=== PATIENT | female | born 1960 | race Caucasian/White ===

== ENCOUNTER 2019-04-09 21:21 | Emergency (ER) | payer SELFPAY ==
[~2019-04-09] VITALS: Ht 167.6 cm; Wt 76.2 kg
[2019-04-09] MEDS ORDERED: NALOXONE HCL 1 MG/ML 2 ML SYG IVP ONE ×2 (21:30)
[2019-04-09] MEDS ORDERED: SODIUM CHLORIDE 0.9% 1,000 ML IV ONE (21:30)
[2019-04-09] MEDS ORDERED: NICARDipine 20 MG/DEXT,ISO-OSM 200 ML IV PRN (21:36)
[2019-04-09] MEDS ORDERED: LABETALOL HCL 5 MG/ML 20 ML VIAL IVP ONE ×3 (21:37→21:45)
[2019-04-09 21:39] LABS: BASOPHILS % (AUTO) 0.9 % (0.0-2.0); EOSINOPHILS % (AUTO) 2.1 % (1.0-6.0); HEMATOCRIT 41.8 % (36-46); HEMOGLOBIN 13.7 g/dL (12.0-16.0); LYMPHOCYTES # (AUTO) 4.3 K/uL (1.0-4.8); LYMPHOCYTES % (AUTO) 34.5 % (22.0-44.0); MEAN CORPUSCULAR HEMOGLOBIN 30.9 pg (26.0-34.0); MEAN CORPUSCULAR HGB CONC 32.8 G/dL (31.0-37.0); MEAN CORPUSCULAR VOLUME 94 fL (80-100); MONOCYTES # (AUTO) 0.7 K/uL (0.1-1.0); MONOCYTES % (AUTO) 6.1 % (2.0-9.0); NEUTROPHILS % (AUTO) 56.4 % (40.0-70.0); PLATELET COUNT (AUTO) 323 K/uL (150-450); RED BLOOD CELL COUNT(AUTO) 4.44 MIL/uL (4.00-5.20); RED CELL DISTRIBUTION WIDTH 13.5 % (11.5-14.5)
[2019-04-09] MEDS ORDERED: RAPID SEQUENCE KIT [RSI] 1 EACH KIT ONE (21:44)
[2019-04-09] MEDS ORDERED: SUCCINYLCHOLINE CHLORIDE 20 MG/ML 10 ML VIAL ONE (21:44)
[2019-04-09] MEDS ORDERED: NiCARDipine HCL 25 MG in DEXTROSE 5%-WATER 240 ML IV PRN (22:00)
[2019-04-09] MEDS ORDERED: MANNITOL 25%-12.5 GM/50 ML VIAL IVP ONE (22:00)
[2019-04-09 22:02] LABS: CALCIUM, TOTAL 9.5 mg/dL (8.8-10.5); CREATININE 1.36 mg/dL (0.60-1.30); POTASSIUM 3.7 mmol/L (3.5-5.1)
[2019-04-09 22:08] LABS: ALBUMIN 3.9 g/dL (3.4-5.0); BILIRUBIN,TOTAL 0.4 mg/dL (0.1-1.0); TOTAL PROTEIN, SERUM 7.4 g/dL (6.4-8.2)
[2019-04-09 22:16] LABS: INR 0.9 (0.9-1.1); PROTHROMBIN TIME 9.5 SEC (9.4-11.6)
[2019-04-09] MEDS ORDERED: IOVERSOL 320 MG/ML 100 ML VIAL ONE (22:35)
[2019-04-09] MEDS ORDERED: SODIUM CHLORIDE 0.9% 100 ML ONE (22:35)
[2019-04-09] MEDS ORDERED: PROPOFOL 1000 MG/ISO-OSM 100 ML IV PRN (22:42)
[2019-04-09 23:29] LABS: APPEARANCE,URINE CLEAR (CLEAR); BILIRUBIN,URINE NEGATIVE (NEGATIVE); GLUCOSE, URINE (UA) 100 mg/dL (NEGATIVE); KETONES,URINE NEGATIVE (NEGATIVE); LEUKOCYTE ESTERASE ,URINE TRACE (NEGATIVE); NITRATE,URINE NEGATIVE (NEGATIVE); OCCULT BLOOD,URINE SMALL (NEGATIVE); PH,URINE 7.5 (5.0-8.0); PROTEIN,URINE TRACE (NEGATIVE); UROBILINOGEN,URINE 0.2 mg/dL (<=1.0)
[2019-04-09 23:34] LABS: AMPHET/METH SCREEN,URINE POSITIVE (NEGATIVE); BARBITURATE SCREEN, URINE NEGATIVE (NEGATIVE); BENZODIAZEPINES SCREEN,URINE NEGATIVE (NEGATIVE); CANNABINOID SCREEN,URINE NEGATIVE (NEGATIVE); COCAINE SCREEN,URINE NEGATIVE (NEGATIVE); METHADONE SCREEN, URINE NEGATIVE (NEGATIVE); OPIATE SCREEN,URINE NEGATIVE (NEGATIVE)
[2019-04-09 23:36] LABS: PHENCYCLIDINE SCREEN,URINE NEGATIVE (NEGATIVE)
[2019-04-09 23:39] LABS: BACTERIA,URINE None Seen /HPF (None Seen)
[2019-04-09 23:40] LABS: SQUAMOUS EPITHELIAL CELL,UR Rare /LPF (None Seen)
[2019-04-10 00:21] LABS: ABG BASE EXCESS 1.4 mmol/L (-2.0-3.0); ABG CARBOXYHEMOGLOBIN 0.5 % (0.0-1.5); ABG HCO3 25.7 mmol/L (22.0-26.0); ABG METHEMOGLOBIN 0.3 % (0.0-1.5); ABG OXYGEN SATURATION 99.6 % (95.0-98.0); ABG OXYHEMOGLOBIN 98.8 % (94.0-100.0); ABG PCO2 39 mmHg (35-45); ABG PH 7.436 (7.35-7.450); ABG TOTAL HEMOGLOBIN 14.1 G/dL (12.0-18.0); SOURCE, BLOOD GAS ARTERIAL; TEMPERATURE, FAHRENHEIT, BG 96.8 FAHREN (96.0-98.6)
[2019-04-10 00:22] LABS: SITE, BLOOD GAS RT RADIAL
[2019-04-10 00:23] LABS: O2 DEVICE,BLOOD GAS VENTILATOR (ROOM AIR); PEEP,BG 5 cm H2O; VT, ABG 450 ml
[2019-04-10] MEDS ORDERED: SUCCINYLCHOLINE CHLORIDE 20 MG/ML 10 ML VIAL IVP ONE (01:15)
[2019-04-10 01:24] VITALS: BP 164/96
== END 2019-04-10 01:38 | disposition short-term general hospital (02) ==
LOC: EMS 21:21 → EDBD 21:21 → EMS 04-10 01:38
DX: S06.360A Traumatic hemorrhage of cerebrum, unspecified, without loss of consciousness, initial encounter (principal); S06.2X9A Diffuse traumatic brain injury with loss of consciousness of unspecified duration, initial encounter; I10 Essential (primary) hypertension; V49.40XA Driver injured in collision with unspecified motor vehicles in traffic accident, initial encounter; Y93.89 Activity, other specified; Y92.89 Other specified places as the place of occurrence of the external cause; Y99.8 Other external cause status
CPT/HCPCS: 31500; 36415; 70450; 70496; 71045; 71275; 74177; 80053; 80307; 81001; 82550; 82805; 84484; 85025; 85610; 85730; 87086; 93005; 96365; 96366; 96374; 96375; 99291; G0480; J0330; J2150; J3490 ×3; J7050; J7060 ×2; Q9967; 94002